=== PATIENT | female | born 1960 | race Caucasian/White ===

== ENCOUNTER 2020-06-02 23:45 | Emergency (ER) | payer MEDICARE ==
[~2020-06-02] VITALS: Ht 162.6 cm; Wt 91.6 kg
[~2020-06-02 23:45] MED LIST: DULO30CA2 PO; FOLI0.8C PO; INSU100V8 SQ; LEVO175T2 PO; LOSA50TA14 PO; MELO7.5T31 PO; METF500T17 PO; METH750T94 PO; PRAV20TA2 PO; PRED20TA PO; PREG50CA PO; TOFA10TA PO; TRAM-47 PO
[2020-06-03] VITALS: BP 179/93
[2020-06-03] MEDS ORDERED: ATIVAN IV STA (00:16)
--- NOTE | 2020-06-03 00:26 | PCM.EKG ---
[facility] Test Date: 2020-06-03 Test Time: 00:17:49 Pat Name: REYES CONTRERAS Department: Room: Gender: F Technical Intern: MOUNIKA : 1960 Requested By: ARLYN MANCERA Order Number: [id number] Reading MD: Arlyn MANCERA Measurements Intervals [place] Rate: 76 P: -5 [place]: 190 QRS: -46 QRSD: 150 T: -14 QT: 433 QTc: 487 Interpretive Statements Sinus rhythm Probable left atrial enlargement RBBB and LAFB No previous ECG available for comparison Electronically Signed On 06-08-2020 17:07:39 MIDDLE SCHOOL DIRECTOR by Arlyn MANCERA Please click the below link to view image of tracing.
--- NOTE | 2020-06-03 00:31 | ER.PDOC ---
General Chief Complaint: Requesting Medical Care Stated Complaint: HIGH BLOOD PRESSURE TRAVEL OUT OF US: No Time seen by MD: 00:28 Source: patient Exam Limitations: no limitations History of Present Illness Initial Comments Elevated blood pressure this evening. No chest pain or shortness of breath. Patient was feeling funny and decided to check his blood pressure at home. Patient told me that she is under a lot of stress. Severity: moderate Associated Symptoms: denies symptoms Allergies: Coded Allergies: aspirin (Verified Allergy, Unknown, 03/11/19) latex (Verified Allergy, Unknown, 03/11/19) Uncoded Allergies: natural rubber (Allergy, Unknown, 03/11/19) Home Meds Reported Medications Methocarbamol (ROBAXIN-750) 750 Mg Tablet, 1 TAB PO TID for 30 Days, #90 TAB 0 Refills 03/10/19 Levothyroxine Sodium (SYNTHROID) 175 Mcg Tablet, 1 TAB PO DAILY, #30 TAB 5 Refills 03/10/19 Folic Acid (Folic Acid) 0.8 Mg Capsule, 1 CAP PO DAILY24 for 30 Days, #30 CAP 0 Refills 03/10/19 Duloxetine Hcl (CYMBALTA) 30 Mg Capsule.dr, 60 MG PO DAILY24 03/10/19 Pregabalin (LYRICA) 50 Mg Capsule, 150 MG PO DAILY24 03/10/19 Tofacitinib Citrate (Xeljanz) 10 Mg Tablet, 1 TAB PO DAILY24 03/10/19 Pravastatin Sodium (PRAVASTATIN SODIUM) 20 Mg Tablet, 20 MG PO HS 03/10/19 Insulin Glargine,Hum.rec.anlog (LANTUS) 100 Unit/1 Ml Vial, 30 UNIT SQ HS, VIAL 03/10/19 Past Medical History Medical History: diabetes, thyroid disease Surgical History: appendectomy, Family History Significant Family History: no pertinent family hx Social History Smoking: non-smoker Alcohol Use: none Drug Use: none Review of Systems Constitutional: no symptoms reported EENTM: no symptoms reported Respiratory: no symptoms reported Cardiovascular: no symptoms reported Gastrointestinal: no symptoms reported All Other Systems: Reviewed and Negative Physical Exam General Appearance: No Apparent Distress, WD/WN, Anxious Neck: Non-Tender, Full Range of Motion, Supple, Normal Inspection Respiratory: chest non-tender, lungs clear, normal breath sounds, no respiratory distress CVS: reg rate & rhythm, no murmur, no gallop, pulses nml, nml capillary refill Gastrointestinal: Normal Bowel Sounds, No Organomegaly, No Pulsatile Mass, Non Tender Back: Normal Inspection, No CVA Tenderness, No Vertebral Tenderness Extremities: Normal Range of Motion 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 (06/03/20 00:16) Xr Chest 1v (06/03/20 00:16) Ekg-Routine (06/03/20 00:16) Lorazepam (Ativan) (06/03/20 00:16) Lorazepam (Ativan) (06/03/20 00:32) Vital Signs Date Time Temp Pulse Resp B/P (MAP) Pulse Ox O2 Delivery O2 Flow Rate FiO2 06/03/20 00:00 98.1 88 16 179/93 (121) 94 Room Air 06/03/20 00:00 98.1 88 16 94 06/03/20 00:00 98.1 88 16 EKG/XRAY/CT/US EKG: NSR, RBBB, no ST T wave changes EKG Comments: HR 76, normal P axis ER DEPART Departure Time of Disposition: 01:15 Disposition: 01 HOME, SELF-CARE Impression: Primary Impression: Elevated blood pressure reading Additional Impression: Anxiety Condition: Improved Referrals: SANIA PRYOR MD (PCP) PRIMARY CARE PROVIDER Additional Instructions: Continue home medications Keep a blood pressure diary Follow-up with your PCP in 2 to 3 days Return to ED if any concerns Duration or Time Spent with Pa: 45 min Problem Qualifiers ARLYN MANCERA MD Jun 03, 2020 00:31
[2020-06-03] MEDS ORDERED: ATIVAN ONE (00:32)
[2020-06-03 00:34] LABS: BASOPHIL % 0.2 % (0.0-0.2); EOSINOPHIL # 0.1 10^3/uL (0.0-0.2); LYMPHOCYTES # 3.13 10^3/uL1 (1.0-4.8); LYMPHOCYTES % 36.4 % (24.0-44.0); MEAN CORP HGB 28.8 pg (26-34); MONOCYTES # 0.6 10^3/uL (0.3-0.8); MONOCYTES % 7.1 % (5.0-12.0); NEUTROPHIL # 4.7 10^3/uL (1.8-7.7); NEUTROPHILS % 54.3 % (41.0-85.0); PLATELET COUNT 370 10^3/uL (150-400); RED CELL DISTRIBUTION WIDTH 14.5 % (11.5-14.5)
[2020-06-03 00:46] VITALS: BP 155/86
--- NOTE | 2020-06-03 00:57 | DIREP ---
PROCEDURE:CHEST 1 VIEW COMPARISON:[facility], CR, XRAY CHEST 2 VWS, 06/13/2014, 06:01 PM. [facility], CR, XRAY CHEST 2 VWS, 04/10/2019, 03:27 PM. INDICATIONS:Hypertension FINDINGS: LUNGS/PLEURA:No significant pulmonary parenchymal abnormalities. No effusions. VASCULATURE:Normal. Unremarkable pulmonary vasculature. CARDIAC:Normal. No cardiac silhouette abnormality or cardiomegaly. MEDIASTINUM:Calcifications consistent with old granulomatous disease. BONES:Normal. No fracture or visible bony lesion. OTHER:Negative. CONCLUSION:No acute disease. No significant change has occurred. Dictated by: Reynaldo Palomares MD on 06/03/2020 at 00:52 AM
[2020-06-03 00:59] VITALS: BP 156/76
[2020-06-03 05:12] LABS: CALCIUM 9.8 mg/dL (8.4-10.5); CARBON DIOXIDE 26.4 mmol/L (20.0-32)
== END 2020-06-03 01:01 | disposition home or self-care (01) ==
LOC: ER 23:45
DX: R03.0 Elevated blood-pressure reading, without diagnosis of hypertension (principal); F41.9 Anxiety disorder, unspecified; E11.9 Type 2 diabetes mellitus without complications; Z79.4 Long term (current) use of insulin; Z79.899 Other long term (current) drug therapy; Z88.6 Allergy status to analgesic agent; Z91.040 Latex allergy status
CPT/HCPCS: 36415; 71045; 80053; 82550; 82553; 83880; 84484; 85025; 85610; 85730; 93005; 96374; 99285; J2060

== ENCOUNTER → 2020-06-24 | Outpatient (CLI) | payer MEDICARE ==
--- NOTE | 2020-06-24 15:26 | DIREP ---
PROCEDURE:Digital Screening Mammogram TECHNIQUE:MLO and CC digital images of each breast are provided. Computer Assisted Detection (CAD) was utilized. COMPARISON:None. INDICATIONS:SCREENING BREAST COMPOSITION:Almost entirely fatty. FINDINGS:There are no grouped microcalcifications, masses, or architectural distortions to suggest malignancy. IMPRESSION:No mammographic evidence of malignancy. RECOMMENDATIONS:Routine Screening Mammography per [employer] guidelines. OVERALL FINAL ASSESSMENT:BI-RADS 1 - Negative Mammogram Note: This facility participates in a mammography screening patient reminder system. Dictated by: Skip Jane DO on 06/24/2020 at 03:22 PM
== END | disposition home or self-care (01) ==
LOC: RAD 14:03
PROVIDERS: ATTEND Internal Medicine
DX: Z12.31 Encounter for screening mammogram for malignant neoplasm of breast (principal)
CPT/HCPCS: 77067

== ENCOUNTER → 2021-08-10 | Outpatient (CLI) | payer MEDICARE ==
[2021-08-10 18:25] LABS: BILIRUBIN,URINE NEGATIVE (NEGATIVE); UROBILINOGEN,URINE 0.2 E.U./dL (0.2)
== END | disposition home or self-care (01) ==
LOC: NPLAB 17:11
PROVIDERS: ATTEND Internal Medicine
DX: E11.43 Type 2 diabetes mellitus with diabetic autonomic (poly)neuropathy (principal); N39.0 Urinary tract infection, site not specified
CPT/HCPCS: 81001; 87077; 87086; 87186

== ENCOUNTER 2021-12-17 12:21 | Emergency (ER) | payer MEDICARE, MEDICAID ==
[~2021-12-17] VITALS: Ht 162.6 cm; Wt 91.7 kg
[2021-12-17] MEDS ORDERED: ZOFRAN IV STA (12:26)
[2021-12-17] MEDS ORDERED: NITROSTAT SL STA (12:26)
[2021-12-17] MEDS ORDERED: MORPHINE SULFATE IV STA ×2 (12:26→12:56)
[2021-12-17] MEDS ORDERED: ASPIRIN ONE (12:28)
[2021-12-17] MEDS ORDERED: NS 1000ML 1,000 ML ONE (12:28)
[2021-12-17] MEDS ORDERED: NITROSTAT SL ONE (12:28)
[2021-12-17] MEDS ORDERED: MORPHINE SULFATE ONE ×2 (12:29→13:07)
[2021-12-17] MEDS ORDERED: ZOFRAN ONE (12:29)
[2021-12-17] MEDS ORDERED: PLAVIX PO STA (12:33)
[2021-12-17] MEDS ORDERED: SUBLIMAZE IV STA (12:33)
--- NOTE | 2021-12-17 12:33 | ER.PDOC ---
General Chief Complaint: Requesting Medical Care Stated Complaint: CP,SOB Time seen by MD: 12:22 Source: patient Exam Limitations: no limitations History of Present Illness Severity/Quality: severe Radiation: back Activities at Onset: rest Prior CP/Workup: Angina, Cardiac Cath Nitro Today/Relief: 0.4 mg x 2 Associated Symptoms: abdominal pain, nausea/vomiting Prior symptoms/Treatment: Similar symptoms previous Allergies: Coded Allergies: aspirin (Verified Allergy, Unknown, 03/11/19) latex (Verified Allergy, Unknown, 03/11/19) Uncoded Allergies: natural rubber (Allergy, Unknown, 03/11/19) Home Meds Reported Medications Methocarbamol (ROBAXIN-750) 750 Mg Tablet, 1 TAB PO TID for 30 Days, #90 TAB 0 Refills 03/10/19 Levothyroxine Sodium (SYNTHROID) 175 Mcg Tablet, 1 TAB PO DAILY, #30 TAB 5 Refills 03/10/19 Folic Acid (Folic Acid) 0.8 Mg Capsule, 1 CAP PO DAILY24 for 30 Days, #30 CAP 0 Refills 03/10/19 Duloxetine Hcl (CYMBALTA) 30 Mg Capsule.dr, 60 MG PO DAILY24 03/10/19 Pregabalin (LYRICA) 50 Mg Capsule, 150 MG PO DAILY24 03/10/19 Tofacitinib Citrate (Xeljanz) 10 Mg Tablet, 1 TAB PO DAILY24 03/10/19 Pravastatin Sodium (PRAVASTATIN SODIUM) 20 Mg Tablet, 20 MG PO HS 03/10/19 Insulin Glargine,Hum.rec.anlog (LANTUS) 100 Unit/1 Ml Vial, 30 UNIT SQ HS, VIAL 03/10/19 Past Medical History Medical History: diabetes, hypertension, thyroid disease Surgical History: appendectomy LMP (females 10-50): postmenopause Social History Drug Use: none Reviewed Nursing Reviewed: Vital Signs, Abn. Noted Constitutional: no symptoms reported Gastrointestinal: see HPI, abdominal pain, nausea Genitourinary: no symptoms reported Musculoskeletal: no symptoms reported Skin: no symptoms reported Psychiatric/Neurological: no symptoms reported Endocrine: no symptoms reported Hematologic/Lymphatic: no symptoms reported All Other Systems: Reviewed and Negative Physical Exam General Appearance: No Apparent Distress, WD/WN HEENT: PERRL/EOMI, Normal ENT Inspection, TMs Normal, Pharynx Normal Neck: Non-Tender, Full Range of Motion, Supple, Normal Inspection Respiratory: chest non-tender, lungs clear, normal breath sounds, no respir atory distress, no accessory muscle use Cardiovascular: Normal Peripheral Pulses, Regular Rate, Rhythm, No Edema, No Gallop, No JVD, No Murmur Gastrointestinal: Normal Bowel Sounds, Tenderness Extremities: Normal Range of Motion, Non-Tender, Normal Inspection, No Pedal Edema, No Calf Tenderness, Normal Capillary Refill 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 as Tested, No Motor/Sensory Deficits, Alert, Normal Mood/Affect, Oriented x 3 Skin: Normal Color, Warm/Dry Results/Orders Results/Orders Orders - LIZETH LEMUS MD 0.9 % Sodium Chloride (Ns 1000ml) (12/17/21 12:28) Nitroglycerin (Nitrostat) (12/17/21 12:28) Aspirin (Aspirin) (12/17/21 12:28) Morphine Sulfate (Morphine Sulfate) (12/17/21 12:29) Ondansetron Hcl/Pf (Zofran) (12/17/21 12:29) Cbc With Auto Diff (12/17/21 12:26) Comprehensive Metabolic Panel (12/17/21 12:26) Creatine Kinase (12/17/21 12:) Creatine Kinase Mb (12/17/21 12:26) Probnp B-Type Painter Mirror (12/17/21 12:) PT (12/17/21 12:) Partial Thromboplastin Time. (12/17/21 12:26) D-Dimer (12/17/21 12:26) Xr Chest 1v (12/17/21 12:26) Ekg-Routine (12/17/21 12:26) Nitroglycerin (Nitrostat) (12/17/21 12:26) Saline Lock (12/17/21 12:26) Troponin I High Sensitivity (12/17/21 12:26) Morphine Sulfate (Morphine Sulfate) (12/17/21 12:26) Ondansetron Hcl/Pf (Zofran) (12/17/21 12:26) Clopidogrel Bisulfate (Plavix) (12/17/21 12:34) Fentanyl Citrate/Pf (Sublimaze) (12/17/21 12:34) Clopidogrel Bisulfate (Plavix) (12/17/21 12:35) Fentanyl Citrate/Pf (Sublimaze) (12/17/21 12:33) Clopidogrel Bisulfate (Plavix) (12/17/21 12:33) Nitroglycerin (Nitrolingual) (12/17/21 13:00) Nitroglycerin/D5w (Nitroglycerin 25mg/D5 (12/17/21 13:00) Morphine Sulfate (Morphine Sulfate) (12/17/21 12:56) Us Gallbladder (12/17/21 13:40) Vital Signs Date Time Temp Pulse Resp B/P (MAP) Pulse Ox O2 Delivery O2 Flow Rate FiO2 12/17/21 12:36 97.7 57 24 12/17/21 12:36 97.7 57 24 12/17/21 12:36 97.7 57 24 186/80 (115) Room Air* 0 21 Administered Medications Medications (Trade) Dose Ordered Sig/Samuel Route PRN Reason Start Time Stop Time Status Last Admin Dose Admin Clopidogrel Bisulfate (Plavix) 225 mg STAT STAT PO 12/17/21 12:33 12/17/21 12:39 DC 12/17/21 12:41 225 MG Fentanyl Citrate (Sublimaze) 100 mcg STAT STAT IV 12/17/21 12:33 12/17/21 12:39 DC 12/17/21 12:40 100 MCG Morphine Sulfate (Morphine Sulfate) 4 mg STAT STAT IV 12/17/21 12:56 12/17/21 12:57 UNV 12/17/21 13:19 4 MG Nitroglycerin (Nitrolingual) 1 sprays OT ONCE TL 12/17/21 13:00 12/17/21 13:01 UNV 12/17/21 13:18 1 SPRAYS Nitroglycerin (Nitrostat) 0.4 mg STAT STAT SL 12/17/21 12:26 12/17/21 12:27 UNV 12/17/21 12:41 0.4 MG Nitroglycerin/ Dextrose 250 ml @ 0 mls/hr IV 12/17/21 13:00 01/16/22 12:59 UNV 12/17/21 13:19 0 MLS/HR Ondansetron HCl (Zofran) 4 mg STAT STAT IV 12/17/21 12:26 12/17/21 12:27 UNV 12/17/21 12:41 4 MG Laboratory Tests Test 12/17/21 12:30 12/17/21 12:43 White Blood Count 12.4 10^3/uL (4.5-11.0) H Red Blood Count 5.17 10^6/uL (4.00-5.20) Hemoglobin 14.1 g/dL (12.0-15.0) Hematocrit 45.9 % (36.0-46.0) Mean Corpuscular Volume 88.8 fL (78-100) Mean Corpuscular Hemoglobin 27.3 pg (26-34) Mean Corpuscular Hemoglobin Concent 30.7 g/dL (33-36.5) L Red Cell Distribution Width 16.1 % (11.5-14.5) H Platelet Count 388 10^3/uL (150-400) Mean Platelet Volume 9.9 fL (7.8-11.0) Neutrophils (%) (Auto) 68.6 % (41.0-85.0) Lymphocytes (%) (Auto) 24.7 % (24.0-44.0) Monocytes (%) (Auto) 5.1 % (5.0-12.0) Neutrophils # (Auto) 8.5 10^3/uL (1.8-7.7) H Lymphocytes # (Auto) 3.07 10^3/uL1 (1.0-4.8) Monocytes # (Auto) 0.6 10^3/uL (0.3-0.8) Absolute Immature Granulocyte (auto 0.07 10^3 u/L (0-2) Absolute Eosinophils (auto) 0.1 10^3/uL (0.0-0.2) Immature Granulocytes % 0.60 % (0.00-0.50) H Eosinophils % 0.8 % (0.0-5.0) Basophils % 0.2 % (0.0-0.2) Basophils # 0.0 10^3/uL (0.0-0.1) Sodium Level 140 mmol/L (132-145) Potassium Level 4.1 mmol/L (3.6-5.2) Chloride Level 106.0 mmol/L (96-109) Carbon Dioxide Level 26.1 mmol/L (20.0-32) Anion Gap 12.0 Blood Urea Nitrogen 21 mg/dL (7-18) H Creatinine 1.08 mg/dL (0.59-1.40) Estimated GFR () 62.4 (>/=60) Est GFR (CKD-EPI)(Non-Afr Slovak) 51.6 (>/=60) BUN/Creatinine Ratio 19.0 Glucose Level 185 mg/dL (70-110) H Calcium Level 10.1 mg/dL (8.4-10.5) Total Bilirubin 0.3 mg/dL (0.2-1.0) Aspartate Amino Transferase (AST) 23 U/L (0-35) Alanine Aminotransferase (ALT) 37 U/L (12-78) Alkaline Phosphatase 83 U/L (50-136) Total Creatine Kinase 120 U/L (26-192) Creatine Kinase MB 2.2 ng/mL (0.5-3.6) Troponin I High Sensitivity 33 ng/L (0-50) Pro-B-Type Natriuretic Peptide 1233 pg/mL (0-125) H Total Protein 7.9 g/dL (6.4-8.2) Albumin 4.0 g/dL (3.4-5.0) Globulin 3.9 Albumin/Globulin Ratio 1.025 Prothrombin Time 10.7 SEC (9.1-11.5) Prothrombin Time INR (Non-Therap) 1.0 Activated Partial Thromboplast Time 24.1 SEC (22.5-33.1) D-Dimer 3.08 mg/L (0.19-0.49) *H Progress Progress PATIENT REQUESTED BSA Consult/PCP Time Consult/PCP Called: 13:33 Consult/PCP: romana chavez ER DEPART Departure Time of Disposition: 13:00 Disposition: 02 SHORT TERM HOSPITAL Impression: Primary Impression: Chest pain Additional Impression: RUQ pain Condition: Improved Referrals: SANIA PRYOR MD (PCP) PRIMARY CARE PROVIDER Duration or Time Spent with Pa: 13m Problem Qualifiers LIZETH LEMUS MD Dec 17, 2021 12:33
[2021-12-17] MEDS ORDERED: PLAVIX ONE ×2 (12:34→12:35)
[2021-12-17] MEDS ORDERED: SUBLIMAZE ONE (12:34)
[2021-12-17 12:36] VITALS: BP 186/80
[2021-12-17 12:38] LABS: BASOPHIL % 0.2 % (0.0-0.2); EOSINOPHIL # 0.1 10^3/uL (0.0-0.2); EOSINOPHIL % 0.8 % (0.0-5.0); LYMPHOCYTES # 3.07 10^3/uL1 (1.0-4.8); LYMPHOCYTES % 24.7 % (24.0-44.0); MEAN CORP HGB 27.3 pg (26-34); MONOCYTES # 0.6 10^3/uL (0.3-0.8); MONOCYTES % 5.1 % (5.0-12.0); NEUTROPHIL # 8.5 10^3/uL (1.8-7.7); NEUTROPHILS % 68.6 % (41.0-85.0); PLATELET COUNT 388 10^3/uL (150-400); RED CELL DISTRIBUTION WIDTH 16.1 % (11.5-14.5)
[2021-12-17] MEDS ORDERED: NITROLINGUAL TL ONE (13:00)
[2021-12-17] MEDS ORDERED: NITROGLYCERIN 25MG/D5W 250ML 250 ML IV SCH (13:00)
--- NOTE | 2021-12-17 13:00 | NUR ---
Nitro drip was initiated at 5mcq/min
[2021-12-17 13:03] LABS: CARBON DIOXIDE 26.1 mmol/L (20.0-32)
--- NOTE | 2021-12-17 13:06 | NUR ---
[facility] ER EDP ON PHONE WITH BAKARI AT [facility] ER ABOUT POSSIBLE TRANSFER.
--- NOTE | 2021-12-17 13:08 | NUR ---
[facility] ER -- ACCEPTANCE DR HURST ACCEPTED PATIENT. AOD IS BAKARI MAXWELL
--- NOTE | 2021-12-17 13:17 | NUR ---
CRITICAL LAB D-DIMER 3.08 EDP NOTIFIED.
--- NOTE | 2021-12-17 13:30 | NUR ---
Nitro drip increased to 10mcq/min
--- NOTE | 2021-12-17 14:15 | NUR ---
Nitro drip tirated to 12.5 mcq/min. All titrations have been per Dr. tsai
--- NOTE | 2021-12-17 14:15 | DIREP ---
PROCEDURE:CHEST 1 VIEW COMPARISON:[facility], CR, XRAY CHEST SINGLE VW, 06/03/2020, 00:25 AM. INDICATIONS:cp FINDINGS: LUNGS/PLEURA:The lungs are incompletely inflated, but clear. No effusions. VASCULATURE:Normal. Unremarkable pulmonary vasculature. CARDIAC:Normal. No cardiac silhouette abnormality or cardiomegaly. MEDIASTINUM:Normal. No visible mass or adenopathy. BONES:Normal. No fracture or visible bony lesion. OTHER:Negative. CONCLUSION:Normal examination. Dictated by: Albina Black III, MD on 12/17/2021 at 02:10 PM
--- NOTE | 2021-12-17 14:35 | PCM.EKG ---
[facility] Test Date: 2021-12-17 Test Time: 12:15:15 Pat Name: REYES CONTRERAS Department: Room: Gender: F Electromechanical Equipment Assembler: ALY : 1960 Requested By: PANKAJ LEMUS [facility]: [id number] Reading MD: Pankaj Lemus Measurements Intervals [place] Rate: 63 P: 33 [place]: 194 QRS: -14 QRSD: 155 T: -3 QT: 487 QTc: 499 Interpretive Statements Sinus rhythm Right bundle branch block Compared to ECG 06/03/2020 00:17:49 Left anterior fascicular block no longer present Electronically Signed On 12-26-2021 7:37:35 CDT by Pankaj Lemus Please click the below link to view image of tracing.
--- NOTE | 2021-12-17 15:00 | DIREP ---
PROCEDURE:US ABDOMEN LIMITED (SINGLE ORGAN - QUAD) COMPARISON:[facility], CT, CT ABD/PELVIS W/ CONTRAST, 03/10/2019, 01:59 PM. INDICATIONS:abd pain TECHNIQUE:High resolution sonographic examination was performed of the abdomen. FINDINGS: RIGHT KIDNEY:12.09 cm x 4.88 cm x 5.18 cm, 159.93 ml GALL BLADDER WALL:2 mm CBD:5 mm PANCREAS:The head and tail are obscured by bowel gas; the remainder is unremarkable. LIVER:Normal size and echogenicity. No significant masses. BILIARY:Tiny polyp or dependent non-shadowing stone in the gallbladder. Normal appearing biliary tree. RIGHT KIDNEY:Negative. OTHER:Negative. CONCLUSION: 1. No sonographic evidence to suggest acute cholecystitis. 2. Tiny polyp or non-shadowing stone dependently positioned in the gallbladder. Dictated by: Albina Black III, MD on 12/17/2021 at 02:54 PM
[2021-12-17 15:37] VITALS: BP 144/74
--- NOTE | 2021-12-17 16:03 | PCM.EKG ---
[facility] Test Date: 2021-12-17 Test Time: 13:20:05 Pat Name: REYES CONTRERAS Department: Room: Gender: F Organ Fixer: LINDSEY : 1960 Requested By: PANKAJ LEMUS Order Number: [id number] Reading MD: Pankaj Lemus Measurements Intervals [place] Rate: 62 P: 23 [place]: 202 QRS: -13 QRSD: 153 T: -9 QT: 497 QTc: 505 Interpretive Statements Sinus rhythm Right bundle branch block Compared to ECG 12/17/2021 12:15:15 No significant changes Electronically Signed On 12-26-2021 7:37:41 CDT by Pankaj Lemus Please click the below link to view image of tracing.
== END 2021-12-17 15:35 | disposition short-term general hospital (02) ==
LOC: ER 12:21
DX: R07.9 Chest pain, unspecified (principal); E07.9 Disorder of thyroid, unspecified; E11.9 Type 2 diabetes mellitus without complications; I10 Essential (primary) hypertension; R10.11 Right upper quadrant pain; Z88.6 Allergy status to analgesic agent; Z90.49 Acquired absence of other specified parts of digestive tract
CPT/HCPCS: 99285; 96365; 96375; 76705; 71045; 80053; 85025; 36415; 85379; 84484; 82553; 83880; 82550; 85610; 85730; 93005 ×2; J7030; J2405; J3010